=== PATIENT | male | born 1980 | race Caucasian/White ===

== ENCOUNTER 2023-10-10 11:03 | Emergency (ER) | payer BC, SELFPAY ==
[2023-10-10 11:18] VITALS: BP 131/95; PULSE 96; RESP 19; TEMP 36.7; O2SAT 100
--- NOTE | 2023-10-10 12:38 | ED.EYEPROB ---
HPI - Eye Problem General Chief complaint: Eye Problems Stated complaint: left eye Time Seen by Provider: 10/10/23 12:20 Source: patient Mode of arrival: ambulatory Limitations: no limitations History of Present Illness HPI Narrative: This is a 43-year-old male who presents to the ED with chief complaint of left eye irritation beginning yesterday morning. Patient reports there was a hair stuck in his eyelid that he pulled out. Ever since then he has had crusting drainage and diffuse eye redness to the left side. Described as irritation. Denies headache, seeing halos or other vision changes. Denies pain with EOMs, fevers, chills Related Data Allergies Allergy/AdvReac Type Severity Reaction Status Date / Time amoxicillin Allergy Mild allergic Verified 09/24/19 13:33 to yellow dye in liquid amoxicillin yellow dye Allergy Unknown Verified 09/24/19 13:33 Review of Systems Review of Systems: All systems as dictated in HPI Exam Narrative: GENERAL: Well-appearing, well-nourished, and in no acute distress. HEAD: Normocephalic, atraumatic. EYES: There is crusting drainage and diffuse scleral injection the left eye. Right eye benign PERRLA and EOMI. Visual acuity intact bilateral Wood's lamp exam shows no evidence of corneal abrasion or foreign body. IOP normal bilaterally. ENT: Nares clear, no rhinorrhea or epistaxis. Mucous membranes moist. Oropharynx without tonsillar hypertrophy exudate or other lesions. NECK: Supple. No adenopathy or masses. CHEST: No respiratory distress. Clear to auscultation. No wheezes rales or rhonchi HEART: Regular rate and rhythm. No murmur heard. Normal peripheral pulses. ABDOMEN: Soft, nontender, nondistended, normal active bowel sounds. MSK: Normal range of motion. No edema. SKIN: Warm, dry, no rash. NEURO: Alert and oriented x3. No focal deficits. PSYCH: Normal mood and affect. Course Vital Signs Vital signs: Vital Signs Temperature 98.0 F 10/10/23 11:18 Pulse Rate 96 10/10/23 11:18 Respiratory Rate 19 10/10/23 11:18 Blood Pressure 131/95 H 10/10/23 11:18 Pulse Oximetry 100 10/10/23 11:18 Temperature 98.0 F 10/10/23 11:18 Pulse Rate 96 10/10/23 11:18 Respiratory Rate 19 10/10/23 11:18 Blood Pressure 131/95 H 10/10/23 11:18 Pulse Oximetry 100 10/10/23 11:18 MDM - Eye Problem MDM Narrative Medical decision making narrative: This is a 43-year-old male who presents to the ED with chief complaint of left eye irritation. Erythematous conjunctiva with crusted discharge on exam. Vitals are normal. Intra-ocular pressures are normal. No foreign body or corneal abrasion detected. Symptoms are consistent with bacterial conjunctivitis. Rx for ofloxacin drops given. Pt will be discharged in stable condition. Return precautions given and supportive measures discussed. Pt is understanding and agreeable with plan for discharge and follow-up with PCP. Discharge Plan Discharge Clinical Impression: Bacterial conjunctivitis Patient Disposition: Home, Self-Care Condition: Stable Instructions: Antibiotic Form Additional Instructions: Your exam today shows conjunctivitis on the left side. Please take antibiotic drops as prescribed. If you have any new or worsening symptoms please return to the ER for further evaluation. Prescriptions: New ofloxacin 0.3 % drops See Rx Instructions .ROUTE .COMPLEX Qty: 5 0RF Rx Instructions: put 1-2 drps into affected eye(s) every 2-4 h x 2 days, then 1-2 drps 4 times/day days 3-7 Follow-up/Referrals: PHYSICIAN,BATTERY ASSEMBLER DRY CELL [Non-Staff] - Time of Disposition: 12:41
== END 2023-10-10 12:58 | disposition home or self-care (01) ==
LOC: ANHED 12:54
PROVIDERS: Emergency Provider Physician Assistant; PCP Internal Medicine Gastroenterology
DX: H10.89 Other conjunctivitis (principal)
CPT/HCPCS: 99283; A9270

== ENCOUNTER 2024-08-21 12:35 | Emergency (ER) | payer BC, SELFPAY ==
[2024-08-21 12:40] VITALS: BP 135/86; PULSE 102; RESP 14; TEMP 36.6; O2SAT 100
--- NOTE | 2024-08-21 12:55 | ED.ALLEREA ---
HPI - Allergic Reaction General Chief complaint: Allergic Reaction Stated complaint: allergic reaction Time Seen by Provider: 08/21/24 12:40 Source: patient Mode of arrival: ambulatory Limitations: no limitations History of Present Illness HPI narrative: Homer is a 44-year-old male patient presenting to the clinic today with complaints of possible allergic reaction. He reports that he has been taking clindamycin for a foot wound infection. Has gotten a refill for clindamycin but this morning he developed itchy rash, itchy scratchy throat, and feels mildly short of breath. He denies any difficulty swallowing, tongue swelling, or drooling. No chest pain. Has been taking the clindamycin for 1 week. Related Data Home Medications ?Medication ?Instructions ?Recorded ?Confirmed ?Last Taken ?Type clindamycin HCl 300 mg capsule 300 mg PO TID 08/21/24 08/21/24 Unknown History lidocaine 5 % topical ointment 1 applic topical DAILY 08/21/24 08/21/24 Unknown History Allergies Allergy/AdvReac Type Severity Reaction Status Date / Time cephalexin Allergy Intermediate Hives Verified 08/21/24 12:52 amoxicillin Allergy Mild allergic Verified 08/21/24 12:52 to yellow dye in liquid amoxicillin yellow dye Allergy Unknown Unknown Verified 08/21/24 12:52 Review of Systems Review of Systems: Pertinent positives per HPI. Patient denies any fever, chills, headache, visual changes, dizziness, cough, runny nose, chest pain, palpitations, nausea, vomiting, diarrhea, constipation, abdominal pain, or any urinary issues. PMFSH Comments At the time of my signature, I reviewed and agree with the nursing past medical, surgical, social, and family history. There is no relevant family history pertinent to the patient complaint. Exam Narrative: General: Well-developed, well nourished, in no apparent distress Head: Normocephalic, atraumatic Eyes: Pupils equally round and reactive to light bilaterally, EOM intact, sclera and conjunctive clear, no discharge, lids normal Ears: TMs intact and clear, ear canals clear, no drainage, grossly hearing normal. Nose: Nares patent, no discharge, no inflammation, no sinus tenderness. Mouth: Oropharynx without lesions or masses, good dentition, MMM. Neck: Supple, trachea midline, no enlargement of anterior or posterior cervical nodes, no thyroid masses or goiter palpable. Cardio: Regular rate and rhythm, s1 and s2 normal, no murmur appreciated. Resp: Clear to auscultation bilaterally anteriorly and posteriorly, no rhonchi, rales, wheezing or rubs Extremities: No deformity, 1+ pitting edema in the right lower foot, very small open wound to the right dorsal foot to the distal midfoot proximal of the 4th and 5th toe, no cyanosis, capillary refill less than 2 seconds, peripheral pulses palpable and strong. Integumentary: [place], warm, and dry, intact without lesion, red, mildly raised itchy rash to arms, legs, and chest Course Course Emergency Course: Portions of this record may have been created with voice recognition software. Level of Care: Express Care Visit Vital Signs Vital signs: Vital Signs Temperature 36.6 C 08/21/24 12:40 Pulse Rate 102 H 08/21/24 12:40 Respiratory Rate 14 08/21/24 12:40 Blood Pressure 135/86 08/21/24 12:40 Pulse Oximetry 100 08/21/24 12:40 Temperature 36.6 C 08/21/24 12:40 Pulse Rate 102 H 08/21/24 12:40 Respiratory Rate 14 08/21/24 12:40 Blood Pressure 135/86 08/21/24 12:40 Pulse Oximetry 100 08/21/24 12:40 Vital signs reviewed MDM - Allergic Reaction MDM Narrative Medical decision making narrative: At the time of visit patient is resting comfortably on the exam table. Patient appears to be nontoxic. Medications: Benadryl 50 mg p.o., Decadron 10 mg IM, and Pepcid 40 mg p.o.-this relieved patient's shortness of breath and itching Plan: I suspect patient may be having allergic reaction to the clindamycin antibiotic. Will have patient stop taking the antibiotic and contact his provider who is caring for his wound to discuss being placed on a different antibiotic. Supportive measures were discussed with the patient and they voiced understanding discharge instructions and agrees to treatment plan. Return precautions reviewed Differential Diagnosis Differential diagnosis: Likely anaphylaxis, allergic reaction, angioedema, contact dermatitis, adverse reaction to drug, viral enanthem and urticaria Discharge Plan Discharge Clinical Impression: Allergic reaction Qualifiers: Encounter type: initial encounter Qualified Code(s): T78.40XA - Allergy, unspecified, initial encounter Patient Disposition: Home, Self-Care Condition: Stable Instructions: Antibiotic Form, General Allergic Reaction (ED) Additional Instructions: Hold taking the clindamycin and contact your prescribing provider and discuss changing the antibiotics Take prednisone as directed-start tomorrow 08/22/24 Take famotidine as directed-start tomorrow 08/22/24 Avoid hot showers Avoid scratching as this can cause a secondary infection May take benadryl 25-50mg every 6 hours as needed for itching. Follow up with your PCP in 3-5 days if symptoms persist or sooner if they worsen Go to the Emergency Room if symptoms worsen- fever, rash spreading with treatment, shortness of breath, tongue swelling, drooling, or chest pain Patient Language: Kyrgyz Prescriptions: New famotidine [Pepcid] 40 mg tablet 40 mg PO DAILY 10 Days Qty: 10 0RF prednisone 10 mg tablet 10 mg PO DAILY Qty: 30 0RF Rx Instructions: 60mg po daily on day 1, 40mg po daily on days 2-4, 30mg po daily on days 5-6, 20mg po daily on days 7-8, 10mg po daily on days 9-10 No Action clindamycin HCl 300 mg capsule 300 mg PO TID lidocaine 5 % ointment 1 applic topical DAILY Follow-up/Referrals: Henrik,Junito Bailey MD [Primary Care Provider] - Time of Disposition: 13:24 Quality NIHSS Nursing Documentation ED NIHSS nursing documentation: reviewed/agree
[2024-08-21] MEDS: FAMOTIDINE 20 MG TABLET 40 MG PO (13:05)
[2024-08-21] MEDS: diphenhydrAMINE HCl CAP 25 MG CAPSULE 50 MG PO (13:05)
[2024-08-21] MEDS: dexAMETHasone SOD PHOS INJ 10 MG/ML 1 ML VIAL IM (13:06)
== END 2024-08-21 13:28 | disposition home or self-care (01) ==
PROVIDERS: Emergency Provider Nurse Practitioner Family; PCP Internal Medicine Gastroenterology
DX: L27.0 Generalized skin eruption due to drugs and medicaments taken internally (principal); T36.8X5A Adverse effect of other systemic antibiotics, initial encounter
CPT/HCPCS: 96372; 99213; A9270; G0463; J1100

== ENCOUNTER 2024-08-30 18:58 | Emergency (ER) | payer BC, SELFPAY ==
--- NOTE | 2024-08-30 19:04 | ED_ITS ---
HPI - Skin/Abscess/Foreign Bdy General Chief complaint: Allergic Reaction Stated complaint: Allergic Reaction Time Seen by Provider: 08/30/24 19:04 Source: patient Mode of arrival: ambulatory Limitations: no limitations History of Present Illness HPI narrative: 44-year-old male presents with complaint of itchy rash. Patient was seen here on August 21 with same complaint. Patient was having allergic reaction to clindamycin. Patient was given prednisone, famotidine and told to take Benadryl. Was told to stop antibiotic and call his wound care doctor for new prescription. Patient states he was unable to get a hold of wound physician, did not want infection to get worse so he continued taking clindamycin. Last dose of clindamycin worse 4 days ago. Took last dose of her prednisone today and continues to have rash in itching. No shortness of breath or difficulty swallowing. Infection to right foot Resolved. All systems reviewed and negative except as noted above. Related Data Home Medications ?Medication ?Instructions ?Recorded ?Confirmed ?Last Taken ?Type lidocaine 5 % topical ointment 1 applic topical DAILY 08/21/24 08/21/24 Unknown History Allergies Allergy/AdvReac Type Severity Reaction Status Date / Time cephalexin Allergy Intermediate Hives Verified 08/30/24 18:59 amoxicillin Allergy Mild allergic Verified 08/30/24 18:59 to yellow dye in liquid amoxicillin yellow dye Allergy Unknown Unknown Verified 08/30/24 18:59 Review of Systems Review of Systems: CONSTITUTIONAL: Denies fever, chills, or sweats. EYES: Denies visual changes, redness, or discharge. ENT: Denies rhinorrhea, congestion, sore throat, or otalgia. CARDIOVASCULAR: Denies chest pain, palpitations, or edema. RESPIRATORY: Denies cough or dyspnea. GASTROINTESTINAL: Denies abdominal pain, nausea, vomiting, or diarrhea. GENITOURINARY: Denies dysuria or hematuria. SKIN: Reports rash and itching. MUSCULOSKELETAL: Denies back pain, joint pain, or myalgia. NEUROLOGIC: Denies headache, numbness, or weakness. PSYCHIATRIC: Denies anxiety or depression. All other systems reviewed are negative, except as documented in HPI. PMFSH Comments At time of signature, agree with nursing past medical, surgical, social and family history. There is no relevant family history pertinent to the presenting complaint. Exam Narrative: GENERAL: This is a well-nourished, well-developed patient, in no apparent distress. HEAD: normocephalic, atraumatic. EYES: PERRL. Sclera clear/white. Vision is grossly intact. EARS: External ears normal NOSE: External nose normal NECK: Neck supple, non-tender without lymphadenopathy, masses or thyromegaly. CARDIOVASCULAR: Regular rate and rhythm without murmurs, gallops, or rubs. RESPIRATORY: Clear to auscultation. Breath sounds equal bilaterally. No wheezes, rales, or rhonchi. SKIN: warm, Dry, intact erythematous generalized macular papular rash, good texture and turgor. NEURO: awake, alert, and oriented to person, place and time. There were no obvious focal neurologic abnormalities. EXTREMITIES: No joint tenderness, effusion, or edema noted. Course Course Level of Care: Express Care Visit Vital Signs Vital signs: Vital Signs Temperature 37.3 C 08/30/24 19:05 Pulse Rate 124 H 08/30/24 19:05 Respiratory Rate 20 08/30/24 19:05 Blood Pressure 137/82 08/30/24 19:05 Pulse Oximetry 98 08/30/24 19:05 Oxygen Delivery Room Air 08/30/24 19:05 Temperature 37.3 C 08/30/24 19:05 Pulse Rate 124 H 08/30/24 19:05 Respiratory Rate 20 08/30/24 19:05 Blood Pressure 137/82 08/30/24 19:05 Pulse Oximetry 98 08/30/24 19:05 Oxygen Delivery Room Air 08/30/24 19:05 reviewed MDM - Skin/Abscess/Foreign Bdy MDM Narrative Medical decision making narrative: patient is alert, nontoxic. Given IM Solu-Medrol due to pharmacies being closed this evening. Will start prednisone prescription tomorrow morning. Patient did not stop antibiotic after having allergic reaction and this is why rash and itching continued. Last dose of clindamycin was 4 days ago. Infection to right foot has resolved, no erythema swelling fluctuance noted. Please be advised this is a medical document. It is intended for [id number] communication. It is written in medical language and may contain unfamiliar abbreviations or verbiage. Medical documents are intended to carry relevant information, facts as evident, and the clinical opinion of the practitioner at the time of the encounter. This report may have been done utilizing a voice recognition system. Attempts have been made to correct errors. However, there may be uncorrected grammatical, spelling, and recognition errors present. The file time of this note does not necessarily represent the time of service. Discharge Plan Discharge Clinical Impression: Allergic reaction due to anti-infective agent Patient Disposition: Home, Self-Care Condition: Stable Instructions: General Allergic Reaction (ED) Additional Instructions: take medications as prescribed. You were given an intramuscular injection of steroids at [facility] today. Start prednisone prescription tomorrow morning. follow-up with your primary care physician if rash is not improving. If you are having any difficulty breathing or swallowing go to the ER. Patient Language: Khmer Prescriptions: New famotidine 20 mg tablet 20 mg PO BID 7 Days Qty: 14 0RF prednisone 20 mg tablet 40 mg PO DAILY 5 Days Qty: 10 0RF loratadine [Claritin] 10 mg tablet 10 mg PO BID Qty: 7 0RF No Action lidocaine 5 % ointment 1 applic topical DAILY famotidine [Pepcid] 40 mg tablet 40 mg PO DAILY 10 Days Qty: 10 0RF prednisone 10 mg tablet 10 mg PO DAILY Qty: 30 0RF Rx Instructions: 60mg po daily on day 1, 40mg po daily on days 2-4, 30mg po daily on days 5-6, 20mg po daily on days 7-8, 10mg po daily on days 9-10 Follow-up/Referrals: PHYSICIAN,LEVELING MACHINE OPERATOR [Primary Care Provider] - Time of Disposition: 19:16
[2024-08-30 19:05] VITALS: BP 137/82; PULSE 124; RESP 20; TEMP 37.3; O2SAT 98
[2024-08-30] MEDS: methylPREDNISolone SOD SUCC 125 MG VIAL IM (19:16)
== END 2024-08-30 19:30 | disposition home or self-care (01) ==
PROVIDERS: Emergency Provider Nurse Practitioner Family
DX: L27.0 Generalized skin eruption due to drugs and medicaments taken internally (principal); T36.8X5A Adverse effect of other systemic antibiotics, initial encounter; I48.91 Unspecified atrial fibrillation; K21.9 Gastro-esophageal reflux disease without esophagitis; Z86.16 Personal history of COVID-19
CPT/HCPCS: 96372; 99213; G0463; J2919

== ENCOUNTER 2025-05-14 10:59 | Emergency (ER) | payer BC, SELFPAY ==
[2025-05-14 11:05] VITALS: BP 127/79; PULSE 80; RESP 14; TEMP 36.6; O2SAT 99
--- NOTE | 2025-05-14 11:42 | ED.EYEPROB ---
HPI - Eye Problem General Chief complaint: Eye Problems Stated complaint: Piece of tree in right eye Time Seen by Provider: 05/14/25 11:32 Source: patient, RN notes reviewed and old records reviewed Mode of arrival: ambulatory Limitations: no limitations History of Present Illness HPI Narrative: 44 year old male presents to [facility] care with complaints of knocking berries off a jhon 30 minutes prior to arrival and pieces of john flew into his eyes. He reports that he flushed his eyes and was able to get out of left eye but not his right. Patient reports irritation discomfort and foreign object feeling in his right eye with increased watering noted. Visual acuity left eye 20/40, right 20/20 without correction. MD chief complaint: eye redness and foreign body (feeling, eye irritation) Onset (ago): hour(s) (30 minutes prior to arrival) Onset description: sudden Eye Symptoms: redness, foreign body sensation and other (watering of right eye) Place: home Severity scale (1-10): 2 Related Data Home Medications ?Medication ?Instructions ?Recorded ?Confirmed ?Last Taken ?Type lidocaine 5 % topical ointment 1 applic topical DAILY 08/21/24 08/21/24 Unknown History Allergies Allergy/AdvReac Type Severity Reaction Status Date / Time clindamycin Allergy Severe Wheezing Verified 05/14/25 11:26 cephalexin Allergy Intermediate Hives Verified 05/14/25 11:26 amoxicillin Allergy Mild allergic Verified 05/14/25 11:26 to yellow dye in liquid amoxicillin yellow dye Allergy Unknown Unknown Verified 05/14/25 11:26 Review of Systems Review of Systems: CONSTITUTIONAL: Denies fever, chills, or sweats. EYES: Denies visual changes. Reports redness,, irritation, foreign body sensation to right eye and increased watering right eye ENT: Denies rhinorrhea, congestion, sore throat, or otalgia. CARDIOVASCULAR: Denies chest pain, palpitations, or edema. RESPIRATORY: Denies cough or dyspnea. SKIN: Denies rash or itching. NEUROLOGIC: Denies headache All systems reviewed & are unremarkable except as noted in HPI and below PMFSH Past Medical History Medical History Tachycardia Paroxysmal A-fib GERD (gastroesophageal reflux disease) COVID-19 History of dental problems Suicide attempt Back pain Surgical History Surgical History History of lung surgery right lower lung removed reports due to COVID Social History Social History Smoking packs per day: 1 Smoking cigarettes per day: 20.0 Smoking status: Current every day smoker Tobacco type: cigarettes Alcohol intake: current Alcohol use details: social Substance use type: does not use Gender identity (if verbalized by the patient): Male Comments At time of signature, agree with nursing past medical, surgical, social and family history. There is no relevant family history pertinent to the presenting complaint Exam Narrative: GENERAL: Well-appearing, well-nourished, and in no acute distress. HEAD: Normocephalic, atraumatic. EYES: PERRLA and EOMI. Upper and lower eyelids unremarkable. No periorbital cellulitis noted. Sclera injected right eye with foreign body feeling increased watering right eye, see procedure note ENT: Nares clear, no rhinorrhea or epistaxis. Mucous membranes moist. NECK: Supple. no lymphadenopathy CHEST: Clear to auscultation. No respiratory distress.no acute cough SAO2 99% on room air HEART: Regular rate and rhythm. No murmur heard. Normal peripheral pulses. SKIN: Warm, dry, no rash. NEURO: No focal deficits. Alert and oriented x3. Course Course Emergency Course: Patient is aware of diagnosis, understands and agrees to treatment plan. Anticipatory guidance given. Patient agrees to follow-up as directed and is aware of reasons to seek care at the emergency department. Portions of this record may have been created with voice recognition software Level of Care: Express Care Visit Vital Signs Vital signs: Vital Signs Temperature 36.6 C 05/14/25 11:05 Pulse Rate 80 05/14/25 11:05 Respiratory Rate 14 05/14/25 11:05 Blood Pressure 127/79 05/14/25 11:05 Pulse Oximetry 99 05/14/25 11:05 Temperature 36.6 C 05/14/25 11:05 Pulse Rate 80 05/14/25 11:05 Respiratory Rate 14 05/14/25 11:05 Blood Pressure 127/79 05/14/25 11:05 Pulse Oximetry 99 05/14/25 11:05 Reviewed Procedures FB Removal Eye Foreign Body #1: Foreign Body Removal Date: 05/14/25 Foreign Body Removal Time: 11:50 Time Out performed: Yes Location: eye (R) Topical anesthetic used: tetracaine (0.5% 2 drops) Foreign body: wood Evidence of corneal penetration: No Technique: irrigation, eye wash bottle and cotton tip swab Procedure performed under: direct visualization with magnification and other (kim lamp) Post-procedure medication: topical anesthetic (2 drops for comfor measure) Patient tolerated procedure: well Complications: other (none) Foreign Body Removal Narrative: right eye localized with 2 drops of Tetracaine 0.5% eye examined with magnification, cotton tip applicator under eye lids and over eye surface, irrigated with sterile eye wash solution with small piece of wood removed. Right eye stained with fluoroscien stain and examined with Kim lamp with small abrasion noted to 6o'clock area of right eye, eye irrigated copiously to remove stain and followed with 2 drops of tetracaine 0.5% as comfort measure. MDM - Eye Problem MDM Narrative Medical decision making narrative: Consideration of the following conditions may be warranted for the presenting problem, they are not final diagnoses: Bacterial conjunctivitis, allergic conjunctivitis, viral conjunctivitis, foreign body, blepharitis, chalazion, hordeolum, corneal abrasion.? Exam findings show no acute concerns or changes; patient is non-toxic appearing and is in no distress.? Patient is appropriate for outpatient treatment and follow-up. Differential Diagnosis Differential diagnosis: Likely corneal abrasion and other (foreign body right eye wood particle, eye irritation and discomfort right eye) Medical Records Attestation: I reviewed the patient's medical records. Critical Care Time Critical Care Time Critical Care Time: No Discharge Plan Discharge Clinical Impression: Corneal abrasion Qualifiers: Encounter type: initial encounter Laterality: right Qualified Code(s): S05.01XA - Injury of conjunctiva and corneal abrasion without foreign body, right eye, initial encounter Foreign body of eye, external, right Qualifiers: Encounter type: initial encounter Qualified Code(s): T15.91XA - Foreign body on external eye, part unspecified, right eye, initial encounter Patient Disposition: Home Condition: Stable Instructions: Antibiotic Form, Corneal Abrasion (ED) Additional Instructions: Cold compresses to the eyes for comfort May need warm compresses to remove debris in the morning When cleaning the eyes used a washcloth in one direction then change washcloths or use a cotton ball in one direction and then his cotton balls Eyedrops as directed--may be more soothing if left in the refrigerator Do not share medicine--do not touch the eye with the medicine Tylenol or ibuprofen for pain Avoid screen time--television, computer, tablet or phone. Also no reading or driving Follow-up with PCP or pie crust mixer as directed in 48 hours If your symptoms persist, change or worsen significantly before you can contact your personal physician then please, without delay, go to the emergency department for further evaluation. Follow-up with PCP in 7-10 days or sooner if needed Patient Language: [place] Leonean Prescriptions: New ofloxacin 0.3 % drops See Rx Instructions .ROUTE .COMPLEX Qty: 10 0RF Rx Instructions: put 1-2 drps into affected eye(s) every 2-4 h x 2 days, then 1-2 drps 4 times/day days 3-7 No Action famotidine 20 mg tablet 20 mg PO BID 7 Days Qty: 14 0RF prednisone 20 mg tablet 40 mg PO DAILY 5 Days Qty: 10 0RF loratadine [Claritin] 10 mg tablet 10 mg PO BID Qty: 7 0RF lidocaine 5 % ointment 1 applic topical DAILY famotidine [Pepcid] 40 mg tablet 40 mg PO DAILY 10 Days Qty: 10 0RF prednisone 10 mg tablet 10 mg PO DAILY Qty: 30 0RF Rx Instructions: 60mg po daily on day 1, 40mg po daily on days 2-4, 30mg po daily on days 5-6, 20mg po daily on days 7-8, 10mg po daily on days 9-10 Follow-up/Referrals: PHYSICIAN,POLISHER AND BUFFER [Primary Care Provider, Internal Medicine] Time of Disposition: 12:13 Quality [place] Coma Scale Eyes: Open Verbal: Oriented and Alert Motor: Follows Commands Linda Coma Total Score: 15
[2025-05-14] MEDS: DACRIOSE EYE IRRIGATION 118 ML BOTTLE RIGHT EYE (12:00)
[2025-05-14] MEDS: FLUORESCEIN SOD 1 MG/STRIP RIGHT EYE (12:00)
[2025-05-14] MEDS: TETRACAINE HCL 0.5% OPHTH SOLN 4 ML BTL RIGHT EYE (12:00)
== END 2025-05-14 12:18 | disposition home or self-care (01) ==
PROVIDERS: Emergency Provider Registered Nurse
DX: S05.01XA Injury of conjunctiva and corneal abrasion without foreign body, right eye, initial encounter (principal); T15.91XA Foreign body on external eye, part unspecified, right eye, initial encounter; W44.8XXA Other foreign body entering into or through a natural orifice, initial encounter; F17.210 Nicotine dependence, cigarettes, uncomplicated; I48.0 Paroxysmal atrial fibrillation; K21.9 Gastro-esophageal reflux disease without esophagitis; Z86.16 Personal history of COVID-19; Z90.2 Acquired absence of lung [part of]
CPT/HCPCS: 65205; 99213; A9270; G0463